=== PATIENT | male | born 1975 | race Two or more races ===

== ENCOUNTER → 2020-09-02 | Outpatient (CLI) | payer OTHER ==
[2014-02-10 15:00] VITALS: BP 132/83
--- NOTE | 2020-09-02 16:58 | RAD ---
INDICATION: Reason: SHORTNESS OF BREATH / Spl. Instructions: / History: COMPARISON: None. FINDINGS: 2 view of chest obtained. Tortuous aortic contour. No definite focal airspace consolidation or pulmonary edema. Degenerative changes of the spine with osteophyte formation. IMPRESSION: * Tortuous prominent aortic contour without focal airspace consolidation or pulmonary edema. * There is some degenerative spurring of the spine. Electronically signed by: Elia Bee MD (09/02/2020 4:55 PM) [id number]
--- NOTE | 2020-09-02 17:26 | RAD ---
EXAM: Lumbar spine, 3 views. HISTORY: Pain. COMPARISON: None. FINDINGS: 3 views of the lumbar spine are obtained. There is multilevel endplate remodeling and facet arthropathy. There is disc space narrowing at the lumbosacral junction. There is lumbar dextrocurvature. IMPRESSION: 1. Mild multilevel degenerative change. 2. No acute osseous finding. Electronically signed by: Jazmin Ayala MD (09/02/2020 5:23 PM) [facility]
== END ==
LOC: RAD 10:43
PROVIDERS: ATTEND Family Medicine
DX: M47.816 Spondylosis without myelopathy or radiculopathy, lumbar region (principal); M46.06 Spinal enthesopathy, lumbar region; M43.8X6 Other specified deforming dorsopathies, lumbar region; R06.02 Shortness of breath; M54.5 Low back pain
CPT/HCPCS: 71046; 72100

== ENCOUNTER → 2020-10-04 | Outpatient (CLI) | payer OTHER ==
[2014-02-10 15:00] VITALS: BP 132/83
[~2020-10-04] MED LIST: IOHEXOL 240 MG/ML 50ML VIAL. PO ONE; IOHEXOL 300 MG/ML 100ML VIAL. IV ONE
--- NOTE | 2020-10-04 10:21 | RAD ---
EXAM: Abdomen and pelvis CT with intravenous contrast. HISTORY: Pain. Blood in stool. TECHNIQUE: Computed tomographic images of the abdomen and pelvis were obtained following the administ ration of intravenous contrast. Multiplanar reformatting was performed. *One or more of the following individualized dose reduction techniques were utilized for this examina tion: 1. Automated exposure control. 2. Adjustment of the mA and/or kV according to patient size. 3. Use of iterative reconstruction technique. COMPARISON: None. FINDINGS: Evaluation of the lower thorax is unremarkable. The heart is normal in size. There is hepat ic steatosis. The gallbladder and pancreas are unremarkable. There are splenic granulomas. There is a single hepatic granuloma. The stomach and adrenal glands are unremarkable. There is no suspicious re nal lesion or hydronephrosis. The appendix is absent. There is colonic diverticulosis. There is no co nvincing diverticulitis. There is no evidence of abnormal bowel wall thickening. There is no obstruct ion. There is prostatomegaly resulting in deformation of the bladder base. There are bilateral fat-co ntaining inguinal hernias. The aorta is normal in caliber. There is no lymphadenopathy. There is no s uspicious osseous lesion. There is a chronic anterior inferior endplate deformity at T10. IMPRESSION: 1. Colonic diverticulosis. There is no evidence of acute diverticulitis. 2. Hepatic steatosis. 3. Small fat-containing bilateral inguinal hernias. Electronically signed by: Jazmin Ayala MD (10/04/2020 10:18 AM) [id number]
== END ==
LOC: CT 08:51
PROVIDERS: ATTEND Family Medicine
DX: K57.30 Diverticulosis of large intestine without perforation or abscess without bleeding (principal); K76.0 Fatty (change of) liver, not elsewhere classified; K40.00 Bilateral inguinal hernia, with obstruction, without gangrene, not specified as recurrent
CPT/HCPCS: 74177; Q9966; Q9967